=== PATIENT | female | born 1985 | race Caucasian/White ===

== ENCOUNTER 2019-04-07 17:11 | Emergency (ER) | payer BC ==
[2019-04-07 17:33] VITALS: BP 119/71
--- NOTE | 2019-04-07 17:39 | UC ---
UC General HPI - HPI Summary HPI Summary: per triage, Pt presents with c/o body aches,cough, chills, and congestion that began yesterday. Pt states that nasal drainage has been clear. Pt states that she took coricidin at 0630 this morning. [ End ] + wheezing. no hx asthma or copd. pt is a smoker. pt had a flu shot but not sure when- it was this year. - History of Current Complaint Chief Complaint: UCGeneralIllness Stated Complaint: CONGESTION/BODY ACHES/CHILLS Time Seen by Provider: 04/07/19 17:23 Hx Obtained From: Patient Hx Last Menstrual Period: 03/17/19 Onset/Duration: Sudden Onset Timing: Constant Pain Intensity: 7 Associated Signs & Symptoms: Negative: Chest Pain, Diarrhea, SOB, Vomiting - Allergy/Home Medications Allergies/Adverse Reactions: Allergies Allergy/AdvReac Type Severity Reaction Status Date / Time Sulfa (Sulfonamide Allergy Intermediate Shortness Verified 04/07/19 17:34 Antibiotics) of Breath amoxicillin Allergy Hives Verified 04/07/19 17:46 aspirin Allergy Hives Verified 04/07/19 17:46 cefaclor [From Ceclor] Allergy Hives/Diff. Verified 04/07/19 17:46 Breathing/I tching codeine Allergy Hives Verified 04/07/19 17:46 erythromycin base Allergy Hives Verified 04/07/19 17:46 ibuprofen [From Motrin] Allergy Hives Verified 04/07/19 17:46 Penicillins Allergy Hives Verified 04/07/19 17:46 Home Medications: Home Medications Ketotifen Fumarate [Allergy Eye Drops] 04/07/19 [History] PMH/Surg Hx/FS Hx/Imm Hx Psychological History: Depression - Surgical History Surgical History: Yes Surgery Procedure, Year, and Place: Ear Tubes X 2 - Family History Known Family History: Positive: Unknown - Social History Occupation: Employed Full-time Alcohol Use: Rare Substance Use Type: None Smoking Status (MU): Light Every Day Tobacco Smoker - Immunization History Most Recent Tetanus Shot: unknown Review of Systems All Other Systems Reviewed And Are Negative: No Constitutional: Positive: Fever, Chills Eyes: Negative: Eye Redness, Photophobia ENT: Positive: Sinus Congestion. Negative: Sore Throat, Ear Ache Respiratory: Positive: Cough Cardiovascular: Negative: Palpitations, Chest Pain Gastrointestinal: Negative: Abdominal Pain, Vomiting, Diarrhea, Nausea Musculoskeletal: Positive: Myalgia Neurological: Positive: Headache Physical Exam Triage Information Reviewed: Yes Appearance: Ill-Appearing - but non toxic Vital Signs: Initial Vital Signs Temp 99.4 F 04/07/19 17:25 Pulse 114 04/07/19 17:25 Resp 18 04/07/19 17:25 BP 119/71 04/07/19 17:25 Pulse Ox 95 04/07/19 17:25 Vital Signs Reviewed: Yes Eyes: Positive: Conjunctiva Clear ENT: Positive: Pharynx normal, TMs normal. Negative: Nasal drainage Neck: Positive: Supple, Nontender, No Lymphadenopathy Respiratory: Positive: No respiratory distress, Decreased breath sounds, Wheezing - faint to both bases, Other: - cough is congested. Cardiovascular: Positive: No Murmur, Tachycardia - 107 Abdomen Description: Positive: Nontender, No Organomegaly, Soft. Negative: CVA Tenderness (R), CVA Tenderness (L) Bowel Sounds: Positive: Present Neurological: Positive: Alert Psychological: Positive: Age Appropriate Behavior Skin Exam: Normal Re-Evaluation - Re-Evaluation First Eval Re-Evaluation Time: 16:10 Change: Improved - areation much improved but has endinsp wheezes and now crackles to BLL's. HR=96 after po fluids and tylenol. Course/Dx - Course Course Of Treatment: pt refused a cxr citing insurance won't cover it and she can not afford it. - Differential Dx - Multi-Symptom Differential Diagnoses: Other - ill but non toxic. not hypoxic. rapid flu= negative. pt declined a cxr citing insurance won't cover it and she can not afford it. pt has bibasilar end insp crackles and wheezes thus I am going to tx for presumptive bacterial infection/ pneumonia - Diagnoses Provider Diagnosis: Pneumonia Discharge ED - Sign-Out/Discharge Documenting (check all that apply): Patient Departure All imaging exams completed and their final reports reviewed: No Studies - Discharge Plan Condition: Stable Disposition: HOME Patient Education Materials: Pneumonia (ED) Forms: *Work Release Referrals: Katya Smallwood NP [Primary Care Provider] - 5 Days Additional Instructions: USE THE ALBUTEROL INHALER 2 PUFFS EVERY 6 HOURS. GO TO THE ER FOR ANY WORSENING. - Billing Disposition and Condition Condition: STABLE Disposition: Home - Attestation Statements Provider Attestation: Per institutional requirements, I have reviewed the chart, however, I was not consulted specifically or made aware of this patient by the midlevel provider. I did not personally evaluate, interact with , or disposition this patient.
[2019-04-07] MEDS ORDERED: Albuterol HFA INHALER* 8 gm MDI INH ONE (17:40)
[2019-04-07] MEDS ORDERED: Acetaminophen ADULT LIQ* 650 MG/20.3 ML UDC PO ONE (17:42)
[2019-04-07 18:03] LABS: Influenza A Molecular NEGATIVE (Negative); Influenza B Molecular NEGATIVE (Negative)
[2019-04-07] MEDS ORDERED: DOXYcycline CAP(*) 100 MG PO ONE (18:12)
== END 2019-04-07 18:29 | disposition home or self-care (01) ==
LOC: UCCORT 17:11
DX: J18.9 Pneumonia, unspecified organism (principal); F32.9 Major depressive disorder, single episode, unspecified; Z72.0 Tobacco use; Z88.0 Allergy status to penicillin; Z88.2 Allergy status to sulfonamides
CPT/HCPCS: 99203; A9270-GY; G0463